=== PATIENT | female | born 1965 | race Caucasian/White ===

== ENCOUNTER → 2019-01-09 | Outpatient (CLI) | payer BC ==
[2019-01-09 11:17] LABS: URIC ACID 5.4 mg/dL (2.5-6.2)
[2019-01-09 11:22] LABS: C-REACTIVE PROTEIN < 0.5 mg/dL (0.0-0.9)
[2019-01-10 03:19] LABS: RHEUMATOID FACTOR-SCREEN <15 IU/mL (0-29)
== END ==
LOC: COL.LAB 10:10
PROVIDERS: Orthopaedic Surgery Sports Medicine
DX: M25.512 Pain in left shoulder (principal); M25.531 Pain in right wrist